=== PATIENT | female | born 1970 | race Caucasian/White ===

== ENCOUNTER → 2018-02-23 12:24 | Outpatient (CLI) | payer OTHER | END | disposition home or self-care (01) | LOC: D.CT 12:24 | DX: R10.84 Generalized abdominal pain (principal) ==

== ENCOUNTER 2018-06-04 08:58 | Day surgery (SDC) | payer OTHER ==
[2018-06-03 10:41] LABS: MCHC 34.1 g/dL (31.0-37.0); MCV 90.9 fL (80.0-100.0); MEAN PLATELET VOLUME 9.6 fL (7.4-10.4); RBC 4.51 10x6/uL (4.00-5.40); RDW 13.3 % (11.5-14.5); WBC 9.6 10x3/uL (4.8-10.8)
[~2018-06-04] VITALS: Ht 170.2 cm; Wt 93.4 kg
--- NOTE | ~2018-06-04 | OP ---
PATIENT NAME: ALPHONSO RICHMOND MEDICAL RECORD: [id number] :72 LOCATION:D.OPS ADMISSION DATE: SURGEON: MARCIO ROSEN MD DATE OF OPERATION: 06/04/2018 PREOPERATIVE DIAGNOSES: 1. Chronic left upper quadrant abdominal pain. 2. Arthritis. 3. Irritable bowel syndrome. POSTOPERATIVE DIAGNOSES: 1. Chronic left upper quadrant abdominal pain. 2. Arthritis. 3. Irritable bowel syndrome. PROCEDURE: 1. Diagnostic laparoscopy. 2. Laparoscopic lysis of adhesions in the pelvis. SURGEON: Marcio Rosen MD [employer]AR[employer] TEACHER: Starla Mojica APRN REPORT OF OPERATION: The patient's abdomen was prepped and draped in sterile fashion. A Veress needle was inserted in the left upper quadrant and the abdomen was insufflated. A 5-mm Visiport trocar was inserted in the left lateral abdomen. I could see the Veress needle and there was no sign of any injury to bowel or surrounding structures. A 5-mm trocar was then placed in the midline just above the umbilicus. As we inspected the abdomen, there was a scant amount of adhesions in the patient's pelvis from previous partial then total hysterectomy with salpingo-oophorectomy. A separate 5-mm trocar was placed in the suprapubic region. We took down a scant amount of adhesions that were in the pelvis that mainly just caused the distal sigmoid colon and rectum to the loop over each other. Once these were freed up and the sigmoid colon and rectum were freely mobile, we followed this around to the descending colon and saw no signs of any other attachments or adhesions. We then inspected the right lower quadrant. The appendix was seen and showed no signs of any chronic or acute inflammation. The right colon and cecum were noted to be normal with no masses or lesions. We ran the small bowel back from the terminal ileum towards the ligament of Treitz. There were no masses, lesions, ulcerations or signs of inflammatory changes present. The bowel was normal in caliber with no sign of dilatation. We then inspected the transverse colon by pushing back the omentum, transverse colon appeared normal and then the fact there was some stool present throughout it. As we inspected into the bilateral upper quadrants, the liver appeared to be normal with no signs of any inflammatory changes, masses, or lesions. The anterior aspect of the stomach and the left upper quadrant was all clear of any sort of inflammatory changes, lesions, or ulcerations and no herniation was seen on the anterior abdominal wall or bilateral pelvis. At this point, the ports and insufflation were then removed. The wounds were infused with a total of 10 mL of 0.25% Marcaine with epinephrine and then closed with subcutaneous 5-0 Monocryl. COMPLICATIONS: None. CONDITION: Stable. OPERATIVE REPORT [id number] ALPHONSO RICHMOND ANESTHESIA: General endotracheal and local. BLOOD LOSS: Minimal. TRANSINT:[id number] Voice Confirmation ID: [id number] DOCUMENT ID: [id number] MARCIO ROSEN MD at 1441 CC: DIANE SALEH MD and ELENA GRAY [id number] DICTATION DATE: 06/04/18 1222 ESTHETICS INSTRUCTOR: 06/04/18 1234 [facility] [address] [place] [address]
[2018-06-04 08:15] VITALS: BP 126/66; Ht 170.2 cm; Wt 93.4 kg
[2018-06-04 08:16] LABS: BASOPHILS 0.1 % (0-2); HEMOGLOBIN 13.1 g/dL (12-16); IMMATURE GRANULOCYTES 0.1 % (0-5); LYMPHOCYTES 43.3 % (15-50); MCH 30.7 pg (26.0-34.0); MCHC 33.6 g/dL (31.0-37.0); MCV 91.3 fL (80.0-100.0); MEAN PLATELET VOLUME 9.9 fL (7.4-10.4); MONOCYTES 7.1 % (2-11); NEUTROPHILS 47.4 % (40-80); PLATELET COUNT 267 10x3/uL (130-400); RBC 4.27 10x6/uL (4.00-5.40); RDW 13.2 % (11.5-14.5); WBC 7.4 10x3/uL (4.8-10.8)
[2018-06-04 08:28] LABS: CALCIUM 9.7 mg/dL (8.5-10.1); CARBON DIOXIDE 29.4 mmol/L (21.0-32.0); CREATININE - SERUM 0.9 mg/dL (0.6-1.3); POTASSIUM - SERUM 4.4 mmol/L (3.5-5.1)
[~2018-06-04 08:58] MED LIST: BUPROPION HCL100 M1 PO; CARAFATE1 G PO; ED-SPAZ0.125 MG PO; GAS-X125 M1 PO; PROTONIX FOR OR40 MG PT; VENTOLIN HFA18 GM INH
[2018-06-04] MEDS ORDERED: NORCO 10-325 TA1 TAB PO (12:12)
== END 2018-06-04 14:50 | disposition home or self-care (01) ==
LOC: D.OPS 08:58
PROVIDERS: Anesthesiology; Surgery
DX: K66.0 Peritoneal adhesions (postprocedural) (postinfection) (principal); R10.9 Unspecified abdominal pain; I10 Essential (primary) hypertension